=== PATIENT | female | born 1990 | race African-American/Black ===

== ENCOUNTER 2021-03-12 13:25 | Emergency (ER) | payer OTHER, SELFPAY ==
[2021-03-12] MEDS ORDERED: Ondansetron ODT 4 MG TAB ONE (14:10)
[2021-03-13 15:34] LABS: SARS-CoV-2 PCR by NAA DETECTED (NotDetected)
== END 2021-03-12 14:15 | disposition home or self-care (01) ==
LOC: NAV ERS 13:25
DX: U07.1 COVID-19 (principal); R11.2 Nausea with vomiting, unspecified
CPT/HCPCS: 99284; Q0162; U0003; U0005

== ENCOUNTER 2023-03-29 17:17 | Emergency (ER) | payer OTHER, SELFPAY ==
[2023-03-29] MEDS ORDERED: Mag-Al Plus 1200/1200/120 MG (30 mL) UDCUP ONE (18:19)
[2023-03-29] MEDS ORDERED: Lidocaine 2% Viscous 100 ML BOTTLE ONE (18:24)
[2023-03-29] MEDS ORDERED: Labetalol HCl 100 MG TAB PO SCH (19:00)
== END 2023-03-29 19:14 | disposition home or self-care (01) ==
LOC: NAV ERS 17:17
DX: O99.611 Diseases of the digestive system complicating pregnancy, first trimester (principal); K21.9 Gastro-esophageal reflux disease without esophagitis; O16.1 Unspecified maternal hypertension, first trimester; Z3A.01 Less than 8 weeks gestation of pregnancy
CPT/HCPCS: 99283